=== PATIENT | male | born 1985 | race African-American/Black ===

== ENCOUNTER 2017-03-21 10:26 | Emergency (ER) | payer SELFPAY ==
[~2017-03-21] VITALS: Ht 190.5 cm; Wt 123.0 kg
[2017-03-21] MEDS ORDERED: AMLODIPINE 5MG TABLET PO ONE (11:00)
[2017-03-21] MEDS ORDERED: HYDROCHLOROTHIAZIDE 25MG TABLET PO ONE (11:00)
[2017-03-21 12:10] VITALS: BP 178/124
== END 2017-03-21 12:31 | disposition home or self-care (01) ==
LOC: ER 10:43
DX: J02.8 Acute pharyngitis due to other specified organisms (principal); I10 Essential (primary) hypertension
CPT/HCPCS: 87070; 87430; 99283; Z7610